=== PATIENT | female | born 1965 | race Caucasian/White ===

== ENCOUNTER 2023-03-17 20:45 | Emergency (ER) | payer BC ==
[2023-03-17] MEDS ORDERED: Lidocaine 1% 10 ML MDV INJECT ONE (21:17)
[2023-03-17] MEDS ORDERED: Bacitracin Oint 1 GM U/D Packet TOP ONE (21:18)
== END 2023-03-17 23:32 | disposition home or self-care (01) ==
LOC: JP.ED 20:45
DX: S61.215A Laceration without foreign body of left ring finger without damage to nail, initial encounter (principal); Z88.0 Allergy status to penicillin; W26.0XXA Contact with knife, initial encounter
CPT/HCPCS: 99282